=== PATIENT | male | born 1950 | race Caucasian/White ===

== ENCOUNTER → 2017-10-08 | Outpatient (CLI) | payer MEDICARE, OTHER ==
[~2017-10-08] MED LIST: ACAM333T6 PO; ACET250 PO; ASC500 PO; ASCO1TAB26 PO; ASPI-274 PO; ASPI81TA94 PO; ATOR20TA22 PO; ATOR20TA65 PO; ATOR40TA69 PO; BRIM5DRO7 OP; BRIOD OD; BRIOD OU; BUTE12CR TP; CLON-298 PO; CLON-388 PO; DESV50TA9 PO; DIPH0.5D12 IM; DOXA8TAB62 PO; ECON15CR10 TP; ESOM20CA31 PO; ESOM40CA42 PO; FLU60SYR30 IM ONLY; GABA-547 PO; GEMF600T91 PO; HUMNI SC; HYDR-4309 PO; INSU100I18 SQ; INSU100I21 SQ; INSU200I SUBQ; INSU300I; ISRA5CAP PO; LANC-1149 MC; LANI SUBQ; MIR PO; MIR15 PO; MIR45PT PO; MIRA50TA PO; MIRT45TA66 PO; MULT-1 PO; MULT-772 PO; NAL50 PO; NPH,100I5 SQ; OXY5 PO; OXYB15TA14 PO; PNEU0.5D3 IM; POLY17PO25 PO; PRED20TA6 PO; PRED3.5D OP; PREOD OU; QUIN20TA27 PO; QUIN40TA24 PO; SIME125C14 PO; SITA1TBM4 PO; TIMO5SOL OU; ZOLP-1 PO; ZOLP-360 PO; [UNRECOGNIZED DRUG - CODE] OD; [UNRECOGNIZED DRUG - CODE] OS; [UNRECOGNIZED DRUG - CODE] OU; [UNRECOGNIZED DRUG - CODE] OU; [UNRECOGNIZED DRUG - CODE] PO
--- NOTE | 2017-10-08 18:28 | EKG ---
FACILITY: [facility] [place] PATIENT NAME: NIEVES LEIGH : [id number] MR: [id number] V: [id number] EXAM DATE: ORDERING PHYSICIAN: SOPHIA DAY TECHNOLOGIST: MAYNOR ROD Test Reason : ANNUAL Blood Pressure : / mmHG Vent. Rate : 054 BPM Atrial Rate : 054 BPM P-R Int : 188 ms QRS Dur : 144 ms QT Int : 474 ms P-R-T Axes : 052 007 145 degrees QTc Int : 449 ms Sinus bradycardia Left bundle branch block Abnormal ECG No previous ECGs available Referred By: Confirmed By:
== END ==
LOC: RESP 16:05
PROVIDERS: ATTEND Emergency Medicine
DX: Z02.9 Encounter for administrative examinations, unspecified (principal)

== ENCOUNTER → 2017-10-20 | Outpatient (CLI) | payer MEDICARE, OTHER ==
--- NOTE | 2017-10-20 14:44 | RADIOLOGY IMAGING REPORT ---
FACILITY: [facility] [place] PATIENT NAME: Osiel Cesar : 1950 MR: [id number] V: [id number] EXAM DATE: ORDERING PHYSICIAN: SOPHIA DAY TECHNOLOGIST: Location: [facility] Patient: Osiel Cesar : 1950 Visit/Account:[id number] Date of Sevice: 10/20/2017 Exam: ABD SINGLE ORGAN/QUAD/FOLLOWUP Indication: , Palpable lump adjacent to the umbilicus Comparison: None available Findings: Chest to the left of the umbilicus is a small fascial defect measuring 5 mm consistent with a periumbilical hernia. This contains omental fat. The hernia becomes more prominent with Valsalva but there is no evidence of incarceration. IMPRESSION: 1. Small 5 mm periumbilical hernia containing omental fat without evidence of incarceration Report Dictated By: Saravanan Hua at 10/20/2017 2:35 PM Report E-Signed By: Saravanan Hua at 10/20/2017 2:41 PM WSN:[email or web address]
== END ==
LOC: US 01:29
PROVIDERS: ATTEND Emergency Medicine
DX: Q21.0 Ventricular septal defect (principal); I34.1 Nonrheumatic mitral (valve) prolapse; I07.1 Rheumatic tricuspid insufficiency; I35.1 Nonrheumatic aortic (valve) insufficiency
CPT/HCPCS: 76705; 93325; C8929; Q9957

== ENCOUNTER → 2018-10-05 | Outpatient (CLI) | payer MEDICARE, OTHER ==
[~2018-10-05] MED LIST changes: -CLON-298 PO; +CLON-331 PO; -DIPH0.5D12 IM; +DIPH0.5S2 IM; -HYDR-4309 PO; +HYDR-653 PO; -INSU300I; +INSU300I SUBQ; -MIRT45TA66 PO; +MIRT45TA8 PO; +TRAZ50TA52 PO; +ZOLP6.2530 PO; +[UNRECOGNIZED DRUG - CODE] MC
== END ==
LOC: LAB 14:51
PROVIDERS: ATTEND Emergency Medicine
DX: I10 Essential (primary) hypertension (principal)
CPT/HCPCS: 36415; 82607